=== PATIENT | male | born 1950 | race Caucasian/White ===

== ENCOUNTER → 2016-08-14 | Outpatient (CLI) | payer MEDICARE, OTHER | END | disposition home or self-care (01) | LOC: RADPV 08:52 | PROVIDERS: ATTEND Internal Medicine Geriatric Medicine | DX: M19.011 Primary osteoarthritis, right shoulder (principal) ==

== ENCOUNTER 2016-10-30 00:01 | Outpatient (RCR) | payer MEDICARE, MEDICAID, SELFPAY ==
[2015-11-14 11:06] VITALS: BP 128/81
[~2016-10-30 00:01] MED LIST: CLOP75 PO; DIVA500T35 PO; HYD25 PO; MULT-12 PO; QUET300T2 PO; TRAZ-147 PO; VITAD1000 PO
== END 2016-11-28 | disposition home or self-care (01) ==
LOC: IOPBV 00:01
PROVIDERS: ATTEND Psychiatry & Neurology Psychiatry
DX: F31.9 Bipolar disorder, unspecified (principal)
CPT/HCPCS: 90834; 90853

== ENCOUNTER → 2018-10-24 | Outpatient (CLI) | payer MEDICARE, OTHER ==
[~2018-10-24] MED LIST changes: +ATOR20TA86 PO; -CLOP75 PO; +CLOP75TA3 PO; +DIVA-53 PO; +DIVA-54 PO; +DIVA-78 PO; -DIVA500T35 PO; +DOXE25 PO; +FLUT1BLS3 IH; +IPRA4AER IH; +LEVO100T4 PO; +PANT40TA25 PO; +QUET100T PO; +QUET25TA PO; -TRAZ-147 PO; +TRAZ-220 PO
== END | disposition home or self-care (01) ==
LOC: RADPV 10:51
PROVIDERS: ATTEND Internal Medicine Cardiovascular Disease
DX: I35.8 Other nonrheumatic aortic valve disorders (principal); I50.1 Left ventricular failure, unspecified
CPT/HCPCS: 93306

== ENCOUNTER → 2018-11-02 | Outpatient (CLI) | payer MEDICARE, OTHER ==
[~2018-11-02] MED LIST changes: +CHOL100018 PO; -VITAD1000 PO
== END | disposition home or self-care (01) ==
LOC: RADPV 11:08
PROVIDERS: ATTEND Internal Medicine Critical Care Medicine
DX: I70.0 Atherosclerosis of aorta (principal)

== ENCOUNTER → 2022-07-07 | Outpatient (CLI) | payer MEDICARE, OTHER ==
[~2022-07-07] VITALS: Ht 172.7 cm; Wt 72.8 kg
[~2022-07-07] MED LIST changes: +ALPR-705 PO; +APIX5TAB PO; +BISA10SU11 PR; +BUSP5TAB20 PO; -CLOP75TA3 PO; +CLOP75TA60 PO; +DIVA-112 PO; -DIVA-78 PO; +DOCU-350 PO; -DOXE25 PO; +DOXE25CA66 PO; +FLEC50 PO; -HYD25 PO; +HYDR-4527 PO; -MULT-12 PO; +MULT-13 PO; +PANT-31 PO; -PANT40TA25 PO; -TRAZ-220 PO; +TRAZ-257 PO
[2022-07-07 10:11] VITALS: BP 136/84
== END | disposition home or self-care (01) ==
LOC: SRCNTR 09:47
PROVIDERS: ATTEND Internal Medicine Pulmonary Disease
DX: J44.1 Chronic obstructive pulmonary disease with (acute) exacerbation (principal); R91.8 Other nonspecific abnormal finding of lung field; E03.9 Hypothyroidism, unspecified; I48.0 Paroxysmal atrial fibrillation; R56.9 Unspecified convulsions; Z86.718 Personal history of other venous thrombosis and embolism
CPT/HCPCS: G0463; Z7500